=== PATIENT | male | born 1990 | race African-American/Black ===

== ENCOUNTER 2023-04-10 10:06 | Emergency (ER) | payer OTHER ==
[2023-04-10 10:16] VITALS: BP 132/80; PULSE 67; RESP 18; TEMP 98.2; BMI 33.0
[2023-04-10] MEDS ORDERED: ACETAMINOPHEN 500 MG TABLET (FP) ONE (11:34)
[2023-04-10] MEDS ORDERED: IBUPROFEN 400 MG TABLET (FP) PO ONE (11:34)
[2023-04-10] MEDS: ACETAMINOPHEN 500 MG TABLET (FP) PO ONE (11:45)
[2023-04-10] MEDS: IBUPROFEN 400 MG TABLET (FP) PO ONE (11:45)
== END 2023-04-10 12:07 | disposition home or self-care (01) ==
LOC: JERFT 10:06
DX: M25.511 Pain in right shoulder (principal); S39.012A Strain of muscle, fascia and tendon of lower back, initial encounter; M54.2 Cervicalgia; M54.50 Low back pain, unspecified; V49.40XA Driver injured in collision with unspecified motor vehicles in traffic accident, initial encounter; Y92.410 Unspecified street and highway as the place of occurrence of the external cause
CPT/HCPCS: 99283-25